=== PATIENT | female | born 1995 | race Two or more races ===

== ENCOUNTER 2024-05-10 12:50 | Emergency (ER) | payer OTHER ==
[~2024-05-10] VITALS: Ht 157.5 cm; Wt 77.6 kg
[2024-05-10 13:26] VITALS: BP 118/72; PULSE 89; RESP 17; O2SAT 96
[2024-05-10] MEDS ORDERED: METH-1182 PO (15:11)
[2024-05-10] MEDS ORDERED: IBUP-1456 PO (15:11)
== END 2024-05-10 15:27 | disposition home or self-care (01) ==
LOC: ER 12:50
DX: S29.012A Strain of muscle and tendon of back wall of thorax, initial encounter (principal); X58.XXXA Exposure to other specified factors, initial encounter; Y93.B9 Activity, other involving muscle strengthening exercises; Y92.89 Other specified places as the place of occurrence of the external cause; Y99.8 Other external cause status
CPT/HCPCS: 71046